=== PATIENT | male | born 1980 | race American Indian/Alaskan Native ===

== ENCOUNTER 2017-10-03 12:03 | Emergency (ER) | payer BC ==
[2017-10-03 12:26] VITALS: BP 144/94
[2017-10-03] MEDS ORDERED: NORCO 5/325 PO ONE (13:03)
[2017-10-03] MEDS ORDERED: MOTRIN PO ONE (13:03)
--- NOTE | 2017-10-03 13:06 | Emergency Department Report ---
Blank Doc - Documentation Documentation: The patient is a 37-year-old [place] male a past history of hypertension who states he left his doctor's office this morning for routine physical and after leaving felt sharp chest pain in the left side of his chest. Patient states that he was slightly short of breath as well. Patient is continued to have pain with deep breathing. Patient states he's had no cough or fever that is abnormal for him last several days. Patient states he's had some mild irritation from pollen however he does not feel as though his ill or have huge amounts of coughing that would cause him to have chest discomfort. A chest x-ray will be ordered his EKG was reviewed by me is within normal limits. Patient will also have a d-dimer to risk stratify him for PE the patient will be reassessed by the AP.
--- NOTE | 2017-10-03 13:54 | XRay Report ---
ROUTINE CHEST, TWO VIEWS: HISTORY: Pleuritic chest pain. The trachea, heart, mediastinal contour, lung sullivan and bony thorax are unremarkable. IMPRESSION: Unremarkable chest x-ray.
--- NOTE | 2017-10-03 14:11 | Emergency Department Report ---
ED Chest Pain HPI - General Chief Complaint: Chest Pain Stated Complaint: CHEST PAIN Time Seen by Provider: 10/03/17 12:55 Source: patient Mode of arrival: Ambulatory Limitations: No Limitations - History of Present Illness Initial Comments: The patient is a 37-year-old [place] male a past history of hypertension who states he left his doctor's office this morning for routine physical and after leaving felt sharp chest pain in the left side of his chest. Patient states that he was slightly short of breath as well. Patient is continued to have pain with deep breathing. Patient states he's had no cough or fever that is abnormal for him last several days. Patient states he's had some mild irritation from pollen however he does not feel as though his ill or have huge amounts of coughing that would cause him to have chest discomfort. Severity scale (0 -10): 8 - Related Data Previous Rx's Medication Instructions Recorded Last Taken Type HYDROcodone/APAP 5-325 [[place] 1 each PO Q4HR PRN #12 tablet 10/03/17 Unknown Rx 5/325] predniSONE [Deltasone] 20 mg PO QDAY #5 tab 10/03/17 Unknown Rx Allergies Allergy/AdvReac Type Severity Reaction Status Date / Time No Known Allergies Allergy Unverified 10/03/17 12:18 Heart Score - HEART Score History: Slightly suspicious EKG: Normal Age: < 45 Risk factors: 1-2 risk factors Troponin: < normal limit HEART Score: 1 ED Review of Systems ROS: Stated complaint: CHEST PAIN Other details as noted in HPI Comment: All other systems reviewed and negative ED Past Medical Hx - Past Medical History Hx Hypertension: Yes - Surgical History Past Surgical History?: No - Social History Smoking Status: Former Smoker Substance Use Type: Alcohol - Medications Home Medications: Home Medications Medication Instructions Recorded Confirmed Last Taken Type HYDROcodone/APAP 5-325 [[place] 1 each PO Q4HR PRN #12 tablet 10/03/17 Unknown Rx 5/325] predniSONE [Deltasone] 20 mg PO QDAY #5 tab 10/03/17 Unknown Rx ED Physical Exam - General Limitations: No Limitations General appearance: alert, in no apparent distress - Head Head exam: Present: atraumatic, normocephalic - Eye Eye exam: Present: normal appearance - ENT ENT exam: Present: mucous membranes moist - Neck Neck exam: Present: normal inspection - Respiratory Respiratory exam: Present: normal lung sounds bilaterally. Absent: respiratory distress - Cardiovascular Cardiovascular Exam: Present: regular rate, normal rhythm. Absent: systolic murmur, diastolic murmur, rubs, gallop - GI/Abdominal GI/Abdominal exam: Present: soft, normal bowel sounds - Rectal Rectal exam: Present: deferred - Extremities Exam Extremities exam: Present: normal inspection - Back Exam Back exam: Present: normal inspection - Neurological Exam Neurological exam: Present: alert, oriented X3 - Psychiatric Psychiatric exam: Present: normal affect, normal mood - Skin Skin exam: Present: warm, dry, intact, normal color. Absent: rash ED Course Vital Signs 10/03/17 12:20 Temperature 98.2 F Pulse Rate 85 Respiratory 20 Rate Blood Pressure 144/94 O2 Sat by Pulse 96 Oximetry ED Medical Decision Making - Lab Data Lab Results 10/03/17 10/03/17 Range/Units 13:10 13:10 D-Dimer < 135.00 (0-234) ng/mlDDU Troponin T < 0.010 (0.00-0.029) ng/mL - EKG Data -: EKG Interpreted by Sc EKG shows normal: sinus rhythm, axis, intervals, QRS complexes, ST-T waves Rate: normal - EKG Data Interpretation: no acute changes (nonspecific T-wave inversions) - Radiology Data Radiology results: report reviewed No acute process Critical care attestation.: If time is entered above; I have spent that time in minutes in the direct care of this critically ill patient, excluding procedure time. ED Disposition Clinical Impression: Pleurisy Disposition: DC-01 TO HOME OR SELFCARE Is pt being admited?: No Does the pt Need Aspirin: No Condition: Stable Instructions: Pleurisy (ED) Referrals: PRIMARY CARE, [Primary Care Provider] - 3-5 Days
== END 2017-10-03 14:24 | disposition home or self-care (01) ==
LOC: ED 12:03
DX: R09.1 Pleurisy (principal); I10 Essential (primary) hypertension
CPT/HCPCS: 36415; 71046; 84484; 85379; 93005; 93010